=== PATIENT | female | born 1960 | race Caucasian/White ===

== ENCOUNTER 2021-01-16 11:33 | Inpatient (IN) | payer MEDICARE, OTHER ==
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
[2021-01-16 13:16] LABS: Basophils # (A) 0.1 k/uL (0-0.2); Basophils % (A) 1 %; Eosinophils # (A) 0.1 k/uL (0-0.7); Eosinophils % (A) 1 %; HCT 37.7 % (34.0-46.0); HGB 13.3 gm/dL (11.4-16.0); Lymphocytes # (A) 0.8 k/uL (1.0-4.8); Lymphocytes % (A) 8 %; MCH 31.2 pg (25.0-35.0); MCHC 35.3 g/dL (31.0-37.0); MCV 88.2 fL (80.0-100.0); Mean Platelet Volume 7.2; Monocytes # (A) 0.6 k/uL (0-1.0); Monocytes % (A) 6 %; Neutrophils # (A) 7.9 k/uL (1.3-7.7); Neutrophils % (A) 81 %; Platelet Count 396 k/uL (150-450); RBC 4.28 m/uL (3.80-5.40); RDW 11.9 % (11.5-15.5); WBC 9.7 k/uL (3.8-10.6)
--- NOTE | 2021-01-16 13:25 | XR ---
EXAMINATION TYPE: XR chest 1V portable DATE OF EXAM: 01/16/2021 Comparison: None Clinical History: 60-year-old female Suspected COVID-19 pneumonia Findings: Heart normal size. Aorta and pulmonary vasculature within normal limits. Subtle patchy peripheral opa cities, bilaterally. No pleural effusion. Impression: Subtle patchy peripheral infiltrates may be seen with COVID pneumonia.
[2021-01-16 13:29] LABS: Potassium 4.6 mmol/L (3.5-5.1)
[2021-01-16 13:31] LABS: INR 0.9 (<1.2); Partial Thromboplastin Time 22.5 sec (22.0-30.0); Prothrombin Time 9.7 sec (9.0-12.0)
[2021-01-16 13:32] LABS: C Reactive Protein 36.8 mg/L (<10.0); Calcium 8.8 mg/dL (8.4-10.2); Magnesium 2.3 mg/dL (1.6-2.3); Total Bilirubin 0.7 mg/dL (0.2-1.3); Total Protein 7.2 g/dL (6.3-8.2)
[2021-01-16 13:44] LABS: D-Dimer 0.66 mg/L FEU (<0.60)
[2021-01-16] MEDS ORDERED: ACETAMINOPHEN TAB 325 MG TAB PO PRN (15:36)
[2021-01-16] MEDS ORDERED: NALOXONE 0.4 MG/ML 1 ML VIAL IV PRN (15:36)
[2021-01-16] MEDS: ASCORBIC ACID 500 MG TAB PO SCH ×3 (16:15→21:05)
[2021-01-16] MEDS: ZINC SULFATE 220 MG CAP PO SCH (16:15)
[2021-01-16] MEDS: DEXAMETHASONE SOD PHOSPHATE 10 MG/ML 1 ML VIAL IV SCH (16:16)
[2021-01-16] MEDS: CHOLECALCIFEROL 25 MCG (1000 IU) TABLET PO SCH (16:16)
[2021-01-16] MEDS: ENOXAPARIN 40 MG/0.4 ML SYRINGE SQ SCH (16:16)
--- NOTE | 2021-01-16 16:22 | CT ---
CT CHEST FOR PULMONARY EMBOLISM. EXAMINATION TYPE: CT angio chest DATE OF EXAM: 01/16/2021 INDICATION: Shortness of breath and cough CT DLP: 304.7 mGycm, Automated exposure control for dose reduction was used. CONTRAST: Patient injected with 100 mL of Isovue 370. COMPARISON: None TECHNIQUE: CT of the chest is performed on a spiral scan at 2 mm thick sections. Study is performed with intravenous contrast timed for evaluation for pulmonary embolism. This will limit additional po rtions of the evaluation. 3-D MIP images reconstructed by the technologist are reviewed on the compu ter in the coronal and sagittal planes. FINDINGS: No persistent filling defects are evident to suggest an acute pulmonary embolism. There appears to be a 1.3 cm right hilar lymph node. An additional 1.4 cm right infrahilar node is li paula present. A 1.4 cm subcarinal lymph node is present. Ascending aorta diameter at the level of the main pulmonary artery is 2.7 cm. The main pulmonary artery diameter at the bifurcation is 2.0 cm. Scattered peripheral infiltrates are present. These are nonspecific but can be related to atypical pn e[place]. Limited CT section through the upper abdomen. There is moderate fatty infiltration of liver. IMPRESSIONS: 1. No acute pulmonary embolism. 2. Scattered peripheral bilateral lung infiltrates are nonspecific but can be related to atypical pne umonia
[2021-01-16] MEDS: SODIUM CHLORIDE 0.9% 1,000 ML IV SCH (16:23)
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
[2021-01-16] MEDS: ALBUTEROL HFA INHALER INHALATION PRN (19:48)
[2021-01-16 21:04] LABS: Appearance,Urine Clear (Clear); Bacteria,Urine Rare /hpf; Bilirubin,Urine Negative (Negative); Blood,Urine Negative (Negative); Color,Urine Yellow; Glucose,Urine (UA) 1+ (Negative); Hyaline Casts,Urine 1 /lpf (0-2); Ketones,Urine Negative (Negative); Leukocyte Esterase,Urine Moderate (Negative); Mucus,Urine Rare /hpf; Nitrite,Urine Negative (Negative); PH, Urine 5.5 (5.0-8.0); Protein,Urine Trace (Negative); RBC,Urine <1 /hpf (0-5); Squamous Epithelial Cell,Urine 2 /hpf (0-4); Urobilinogen,Urine <2.0 mg/dL (<2.0); WBC,Urine 15 /hpf (0-5)
[2021-01-16] MEDS: DULoxetine HCL 30 MG CAPSULE.DR PO SCH (21:05)
[2021-01-16 21:07] LABS: Specific Gravity,Urine >1.050 (1.001-1.035)
[2021-01-17 01:01] LABS: Ferritin 1145.7 ng/mL (10.0-291.0)
[2021-01-17 05:41] LABS: HCT 37.2 % (34.0-46.0); HGB 12.7 gm/dL (11.4-16.0); MCH 30.3 pg (25.0-35.0); MCHC 34.1 g/dL (31.0-37.0); MCV 88.9 fL (80.0-100.0); Mean Platelet Volume 7.6; Platelet Count 437 k/uL (150-450); RBC 4.19 m/uL (3.80-5.40); RDW 12.2 % (11.5-15.5); WBC 4.3 k/uL (3.8-10.6)
[2021-01-17 05:47] LABS: ALT 34 U/L (4-34); AST 37 U/L (14-36); African American GFR (CKD) >90 (>60 ml/min/1.73 sqM); Albumin 3.8 g/dL (3.5-5.0); Alkaline Phosphatase 63 U/L (38-126); Anion Gap 6 mmol/L; Blood Urea Nitrogen 14 mg/dL (7-17); Calcium 9.2 mg/dL (8.4-10.2); Carbon Dioxide 30 mmol/L (22-30); Chloride 98 mmol/L (98-107); Glucose 143 mg/dL (74-99); Non-African American GFR(CKD) >90 (>60 ml/min/1.73 sqM); Potassium 5.2 mmol/L (3.5-5.1); Sodium 134 mmol/L (137-145); Total Bilirubin 0.5 mg/dL (0.2-1.3); Total Protein 6.9 g/dL (6.3-8.2)
[2021-01-17 08:13] LABS: Lymphocytes # (M) 0.82 k/uL (1.0-4.8); Monocytes # (M) 0.43 k/uL (0-1.0); Neutrophils # (M) 3.05 k/uL (1.3-7.7); Neutrophils % (M) 71 %; Nucleated Red Blood Cells 0 /100 WBC (0-0); Rouleaux Present; Total Cells Counted 100
[2021-01-17] MEDS: ZINC SULFATE 220 MG CAP PO SCH (09:18)
[2021-01-17] MEDS: ASCORBIC ACID 500 MG TAB PO SCH ×2 (09:18→20:30)
[2021-01-17] MEDS: CHOLECALCIFEROL 25 MCG (1000 IU) TABLET PO SCH (09:18)
[2021-01-17] MEDS: DEXAMETHASONE SOD PHOSPHATE 10 MG/ML 1 ML VIAL IV SCH (09:18)
[2021-01-17] MEDS: ENOXAPARIN 40 MG/0.4 ML SYRINGE SQ SCH (09:18)
[2021-01-17] MEDS: ALBUTEROL HFA INHALER INHALATION PRN ×4 (09:31→20:10)
[2021-01-17 13:03] VITALS: BMI 30.4
[2021-01-17] MEDS: SODIUM CHLORIDE 0.9% 1,000 ML IV SCH (14:14)
[2021-01-17] MEDS: COLCHICINE 0.6 MG EACH PO SCH (17:50)
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
[2021-01-17] MEDS: DULoxetine HCL 30 MG CAPSULE.DR PO SCH (20:30)
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
[2021-01-18] MEDS: ALBUTEROL HFA INHALER INHALATION PRN ×4 (08:11→20:37)
[2021-01-18] MEDS: DEXAMETHASONE SOD PHOSPHATE 10 MG/ML 1 ML VIAL IV SCH (08:55)
[2021-01-18 08:56] LABS: ALT 28 U/L (4-34); AST 28 U/L (14-36); African American GFR (CKD) 90 (>60 ml/min/1.73 sqM); Albumin 3.9 g/dL (3.5-5.0); Albumin/Globulin Ratio 1.1; Alkaline Phosphatase 68 U/L (38-126); Anion Gap 8 mmol/L; Blood Urea Nitrogen 17 mg/dL (7-17); Calcium 9.4 mg/dL (8.4-10.2); Carbon Dioxide 29 mmol/L (22-30); Chloride 97 mmol/L (98-107); Globulin 3.4 g/dL; Glucose 147 mg/dL (74-99); Non-African American GFR(CKD) 78 (>60 ml/min/1.73 sqM); Potassium 4.7 mmol/L (3.5-5.1); Sodium 134 mmol/L (137-145); Total Bilirubin 0.5 mg/dL (0.2-1.3); Total Protein 7.3 g/dL (6.3-8.2)
[2021-01-18] MEDS: COLCHICINE 0.6 MG EACH PO SCH (08:56)
[2021-01-18] MEDS: ASCORBIC ACID 500 MG TAB PO SCH ×2 (08:56→20:15)
[2021-01-18] MEDS: ZINC SULFATE 220 MG CAP PO SCH (08:56)
[2021-01-18] MEDS: ENOXAPARIN 40 MG/0.4 ML SYRINGE SQ SCH (08:56)
[2021-01-18] MEDS: CHOLECALCIFEROL 25 MCG (1000 IU) TABLET PO SCH (08:56)
[2021-01-18 11:08] LABS: HCT 37.5 % (37.2-46.3); HGB 12.4 g/dL (12.0-15.0); MCHC 33.1 g/dL (32.0-37.0); MCV 90.8 fL (80.0-97.0); Platelet Count 545 X 10*3/uL (140-440); RBC 4.13 X 10*6/uL (4.10-5.20); RDW 11.7 % (11.5-14.5); WBC 9.27 X 10*3/uL (4.50-10.00)
[2021-01-18 11:43] LABS: Basophils # (A) 0.02 X 10*3/uL (0.00-0.10); Basophils % (A) 0.2 %; Eosinophils # (A) 0.02 X 10*3/uL (0.04-0.35); Eosinophils % (A) 0.2 %; Lymphocytes # (A) 2.26 X 10*3/uL (0.90-5.00); Lymphocytes % (A) 24.4 %; Monocytes # (A) 0.45 X 10*3/uL (0.20-1.00); Monocytes % (A) 4.9 %; Neutrophils # (A) 6.42 X 10*3/uL (1.80-7.70); Neutrophils % (A) 69.2 %
[2021-01-18] MEDS: SODIUM CHLORIDE 0.9% 1,000 ML IV SCH (15:08)
--- NOTE | 2021-01-18 15:31 | P.PN ---
Subjective Progress Note Date: 01/18/21 Principal diagnosis: Acute CoVID 19 pneumonia This is a pleasant 60-year-old female patient who follows with Dr. Bejarano as her primary care provider. She has a history of depression. Approximate 2 weeks ago she started having symptoms of increasing shortness of breath, cough, congestion, headache, loss of smell, poor appetite. She was exposed to her son who was positive for CoVID 19. She presented to the emergency room yesterday with ongoing symptoms. She to his tested positive for CoVID 19. CT angiogram ruled out pulmonary embolism. There is scattered peripheral bilateral lung infiltrates typical of CoVID 19 pneumonia. White count 4.3. Hemoglobin 12.7. Lymphocytes 0.8. Sodium 134. Potassium 5.2. Creatinine 0.69. D-dimer 0.66. Pro-calcitonin 0.12. She is seen today in consultation on the regular medical floor. She is currently resting comfortably in bed. Awake and alert in no acute distress. Still dyspneic with minimal exertion. She is requiring 3 L of oxygen to maintain O2 saturations in the 90s. She's been initiated on Decadron, Lovenox, vitamin supplements. Outside the window for Remdesivir. Objective - Vital Signs Vital signs: Vital Signs Temp 98.3 F 01/18/21 14:19 Pulse 107 H 01/18/21 14:19 Resp 18 01/18/21 14:19 BP 134/87 01/18/21 14:19 Pulse Ox 90 L 01/18/21 14:19 Intake & Output 01/17/21 01/18/21 01/18/21 18:59 06:59 18:59 Intake Total 10 Balance 10 Weight 75.342 kg Intake: IV 10 Invasive Line 1 10 Other: Voiding Method Toilet Toilet # Voids 2 - Exam GENERAL EXAM: Alert, pleasant 60-year-old female patient, on room air, comfortable in no apparent distress. HEAD: Normocephalic. EYES: Normal reaction of pupils, equal size. NOSE: Clear with pink turbinates. THROAT: No erythema or exudates. NECK: No masses, no JVD. CHEST: No chest wall deformity. LUNGS: Equal air entry with coarse crackles in bilateral bases CVS: S1 and S2 normal with no audible murmur, regular rhythm. ABDOMEN: No hepatosplenomegaly, normal bowel sounds, no guarding or rigidity. SPINE: No scoliosis or deformity SKIN: No rashes CENTRAL NERVOUS SYSTEM: No focal deficits, tone is normal in all 4 extremities. EXTREMITIES: There is no peripheral edema. No clubbing, no cyanosis. Peripheral pulses are intact. - Labs CBC & Chem 7: 01/18/21 08:20 01/18/21 08:20 Labs: Abnormal Lab Results - Last 24 Hours (Table) 01/18/21 01/18/21 Range/Units 08:20 08:20 Plt Count 545 H (140-440) X 10*3/uL Immature Gran # 0.10 H (0.00-0.04) X 10*3/uL Eosinophils # 0.02 L (0.04-0.35) X 10*3/uL Sodium 134 L (137-145) mmol/L Chloride 97 L (98-107) mmol/L Glucose 147 H (74-99) mg/dL Microbiology - Last 24 Hours (Table) 01/17/21 Unknown Urine Culture - Preliminary Urine,Clean Catch Assessment and Plan Assessment: 1 Acute hypoxemic respiratory failure secondary to acute CoVID 19 pneumonitis. Outside the window for Remdesivir 2 Elevated inflammatory markers secondary to above 3 History of depression Plan: The patient was seen and evaluated by Dr. Loraine Ruano from the pulmonary standpoint, on room air Continue Lovenox, Decadron, vitamin supplements Follow-up chest x-ray, inflammatory markers in the a.m. Possible discharge in a.m. We will continue to follow I, the cosigning physician, performed a history & physical examination of the patient. Lungs sounds with coarse crackles in bilateral bases. Maintaining good O2 saturations in the 90s on room air. I discussed the assessment and plan of care with my nurse practitioner, Angela Kaufman. I attest to the above note as dictated by her.
[2021-01-18] MEDS: DULoxetine HCL 30 MG CAPSULE.DR PO SCH (20:14)
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
[2021-01-19 08:09] LABS: Basophils % (A) 0 %; Eosinophils % (A) 0 %; HCT 36.4 % (34.0-46.0); HGB 12.5 gm/dL (11.4-16.0); Lymphocytes # (A) 1.7 k/uL (1.0-4.8); Lymphocytes % (A) 17 %; MCH 30.5 pg (25.0-35.0); MCHC 34.2 g/dL (31.0-37.0); MCV 89.2 fL (80.0-100.0); Mean Platelet Volume 7.3; Monocytes # (A) 0.9 k/uL (0-1.0); Monocytes % (A) 9 %; Neutrophils % (A) 71 %; Platelet Count 566 k/uL (150-450); RBC 4.09 m/uL (3.80-5.40); RDW 11.9 % (11.5-15.5); WBC 9.9 k/uL (3.8-10.6)
--- NOTE | 2021-01-19 08:31 | XR ---
EXAMINATION TYPE: XR chest 1V portable DATE OF EXAM: 01/19/2021 COMPARISON: 01/16/2021 INDICATION: Short of breath, COVID TECHNIQUE: Single frontal view of the chest is obtained. FINDINGS: The heart size is normal. The pulmonary vasculature is normal. Mild peripheral infiltrates are at the mid and lower lung rehman and lungs lung bases. Findings are n onspecific but can be compatible with atypical pneumonia. IMPRESSION: 1. Nonspecific peripheral infiltrates could be compatible with atypical pneumonia.
[2021-01-19 08:35] LABS: ALT 30 U/L (4-34); AST 25 U/L (14-36); African American GFR (CKD) >90 (>60 ml/min/1.73 sqM); Albumin 3.6 g/dL (3.5-5.0); Albumin/Globulin Ratio 1.2; Alkaline Phosphatase 68 U/L (38-126); Anion Gap 8 mmol/L; Blood Urea Nitrogen 20 mg/dL (7-17); Calcium 9.1 mg/dL (8.4-10.2); Carbon Dioxide 29 mmol/L (22-30); Chloride 101 mmol/L (98-107); Globulin 3.1 g/dL; Glucose 106 mg/dL (74-99); LDH 663 U/L (313-618); Non-African American GFR(CKD) 85 (>60 ml/min/1.73 sqM); Potassium 4.8 mmol/L (3.5-5.1); Sodium 138 mmol/L (137-145); Total Bilirubin 0.3 mg/dL (0.2-1.3); Total Protein 6.7 g/dL (6.3-8.2)
[2021-01-19] MEDS: ALBUTEROL HFA INHALER INHALATION PRN (08:37)
[2021-01-19 08:49] LABS: C Reactive Protein 10.5 mg/L (<10.0)
[2021-01-19] MEDS: DEXAMETHASONE SOD PHOSPHATE 10 MG/ML 1 ML VIAL IV SCH (09:12)
[2021-01-19] MEDS: ENOXAPARIN 40 MG/0.4 ML SYRINGE SQ SCH (09:12)
[2021-01-19] MEDS: ZINC SULFATE 220 MG CAP PO SCH (09:12)
[2021-01-19] MEDS: ASCORBIC ACID 500 MG TAB PO SCH (09:12)
[2021-01-19] MEDS: COLCHICINE 0.6 MG EACH PO SCH (09:12)
[2021-01-19] MEDS: CHOLECALCIFEROL 25 MCG (1000 IU) TABLET PO SCH (09:12)
[2021-01-19 10:01] VITALS: BP 119/90; PULSE 84; RESP 20; TEMP 98
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
== END 2021-01-19 13:32 | disposition home or self-care (01) | DRG 177 ==
LOC: EC 11:33 → 1SOBS 15:37 → 4SSUR 01-17 13:06
PROVIDERS: ADMIT Hospitalist; ATTEND Hospitalist
DX: U07.1 COVID-19 (principal); J12.82 Pneumonia due to coronavirus disease 2019; J96.21 Acute and chronic respiratory failure with hypoxia; N39.0 Urinary tract infection, site not specified; E87.1 Hypo-osmolality and hyponatremia; D72.810 Lymphocytopenia; E66.9 Obesity, unspecified; Z68.30 Body mass index [BMI] 30.0-30.9, adult; E87.8 Other disorders of electrolyte and fluid balance, not elsewhere classified; Z80.41 Family history of malignant neoplasm of ovary; Z82.49 Family history of ischemic heart disease and other diseases of the circulatory system; Z83.3 Family history of diabetes mellitus; Z87.891 Personal history of nicotine dependence; Z98.51 Tubal ligation status; Z80.42 Family history of malignant neoplasm of prostate; M19.90 Unspecified osteoarthritis, unspecified site; Z79.899 Other long term (current) drug therapy; R73.9 Hyperglycemia, unspecified
CPT/HCPCS: 36415; 71045; 71275; 80053; 81001; 82728; 83615; 83735; 84145; 85025; 85379; 85610; 85730; 86140; 87040; 87086; 87635; 93005; 94640; 94760; 99285